=== PATIENT | male | born 1990 | race Asian ===

== ENCOUNTER 2017-04-24 10:40 | Emergency (ER) | payer OTHER ==
[2017-04-24 10:51] VITALS: BP 153/76; PULSE 99; TEMP 98.8; BMI 27.1
[2017-04-24] MEDS ORDERED: ONDANSETRON *ODT* 4 MG TABLET SL ONE (11:44)
[2017-04-24] MEDS ORDERED: IBUPROFEN 400 MG TABLET (FP) PO ONE ×2 (11:44→11:46)
--- NOTE | 2017-04-24 11:44 | PDOC ---
History of Present Illness - General Chief Complaint: Cold Symptoms Stated Complaint: FEVER, COLD Time Seen by Provider: 04/24/17 11:25 History Source: Patient Exam Limitations: No Limitations - History of Present Illness Initial Comments: 04/24/17 11:46 Patient is a 27-year-old male with past medical history of asthma, who presents to the emergency department complaining of 5 days of "feeling cold "and body aches. Patient admits to sore throat and dry cough. He states that everything hurts. Has been taking ibuprofen with some relief. Did not take any this morning. Admits to subjective fevers, nausea. Denies earache, shortness of breath, difficulty breathing, wheezing, vomiting, diarrhea Past History - Travel Traveled outside of the country in the last 30 days: No Close contact w/someone who was outside of country & ill: No - Past Medical History Allergies/Adverse Reactions: Allergies Allergy/AdvReac Type Severity Reaction Status Date / Time No Known Allergies Allergy Verified 04/24/17 10:45 Home Medications: Ambulatory Orders Amoxicillin - [Amoxicillin 500mg Capsule -] 500 mg PO BID #14 capsule 04/24/17 Ibuprofen 800 mg PO TID #30 tablet 04/24/17 Asthma: Yes COPD: No - Surgical History Appendectomy: Yes - Suicide/Smoking/Psychosocial Hx Smoking History: Never smoked Hx Alcohol Use: No Drug/Substance Use Hx: No Substance Use Type: None Review of Systems - Review of Systems Able to Perform ROS?: Yes Comments:: 04/24/17 11:48 CONSTITUTIONAL: Present: subjective fever, body aches Absent: chills, diaphoresis, generalized weakness, malaise, loss of appetite HEENT: Present: sore throat Absent: rhinorrhea, nasal congestion, throat swelling, difficulty swallowing, mouth swelling, ear pain, eye pain, visual changes CARDIOVASCULAR: Absent: chest pain, loss of consciousness, palpitations, irregular heart rate, peripheral edema RESPIRATORY: Present: dry non-productive cough Absent: shortness of breath, dyspnea with exertion, orthopnea, wheezing, stridor, hemoptysis GASTROINTESTINAL: Absent: abdominal pain, abdominal distension, nausea, vomiting, diarrhea, constipation, melena, hematochezia GENITOURINARY: Absent: dysuria, frequency, urgency, hesitancy, hematuria, flank pain, genital pain MUSCULOSKELETAL: Absent: myalgia, arthralgia, joint swelling SKIN: Absent: rash, itching, pallor HEMATOLOGIC/IMMUNOLOGIC: Absent: easy bleeding, easy bruising, lymphadenopathy, frequent infections ENDOCRINE: Absent: unexplained weight gain, unexplained weight loss, heat intolerance, cold intolerance NEUROLOGIC: Absent: headache, focal weakness or paresthesias, dizziness, unsteady gait, seizure, mental status changes, bladder or bowel incontinence PSYCHIATRIC: Absent: anxiety, depression, suicidal or homicidal ideation, hallucinations. Is the patient limited Polish proficient: No *Physical Exam - Vital Signs Last Vital Signs Temp Pulse Resp BP Pulse Ox 98.8 F 99 H 20 153/76 95 04/24/17 10:42 04/24/17 10:42 04/24/17 10:42 04/24/17 10:42 04/24/17 10:42 - Physical Exam Comments: 04/24/17 11:50 GENERAL: Well developed, well nourished. Awake and alert. No acute distress. HEENT: Normocephalic, atraumatic. PERRLA, EOMI. Conjunctivitis b/l. Sclera are non- icteric. Moist mucous membranes. Oropharynx with erythema. Tonsils 1+ in size with no uvular deviation NECK: Supple. Full ROM. No JVD. Carotid pulses 2+ and symmetric, without bruits. No thyromegaly. No lymphadenopathy. CARDIOVASCULAR: Regular rate and rhythm. No murmurs, rubs, or gallops. Distal pulses are 2+ and symmetric. PULMONARY: No evidence of respiratory distress. Lungs clear to auscultation bilaterally. No wheezing, rales or rhonchi. ABDOMINAL: Soft. Non-tender. Non-distended. No rebound or guarding. No organomegaly. Normoactive bowel sounds. MUSCULOSKELETAL Normal range of motion at all joints. No bony deformities or tenderness. No CVA tenderness. EXTREMITIES: No cyanosis. No clubbing. No edema. No calf tenderness. SKIN: Warm and dry. Normal capillary refill. No rashes. No jaundice. NEUROLOGICAL: Alert, awake, appropriate. Cranial nerves 2-12 intact. No deficits to light touch and temperature in face, upper extremities and lower extremities. No motor deficits in the in face, upper extremities and lower extremities. Normoreflexic in the upper and lower extremities. Normal speech. Toes are down- going bilaterally. Gait is normal without ataxia. PSYCHIATRIC: Cooperative. Good eye contact. Appropriate mood and affect. Medical Decision Making - Medical Decision Making 04/24/17 11:51 Patient is a 27-year-old male with past medical history of asthma, who presents emergency Department with 5 days of generalized body aches, subjective fevers and sore throat. Symptoms concerning for flu. We'll also rule out strep throat at this time. We'll treat patient's body aches and nausea. 1.flu swab, rapid strep 2.Zofran, ibuprofen 3.reevaluate 04/24/17 12:10 Strep positive 04/24/17 12:26 Flu swab negative. Will d/c home with amoxicillin and supportive care. Pt. to f/ u with PCP in one week. All questions were answered and pt feels comfortable with d/c planning. *DC/Admit/Observation/Transfer Diagnosis at time of Disposition: Strep pharyngitis - Discharge Dispostion Disposition: HOME Condition at time of disposition: Good Admit: No - Prescriptions Prescriptions: Amoxicillin - [Amoxicillin 500mg Capsule -] 500 mg PO BID #14 capsule Ibuprofen 800 mg PO TID #30 tablet - Referrals Referrals: Wild Knox MD [Primary Care Provider] - - Patient Instructions Printed Discharge Instructions: DI for Strep Throat Additional Instructions: You have strep throat. This is caused by a bacteria. Please take amoxicillin 500 mg twice a day for one week. Please finish the medication even if you feel better. Please take ibuprofen 800 mg every 8 hours as needed for pain or body aches. Do not exceed taking more than 3000 mg a day. Throat lozenges and warm water gargles may help your sore throat. Please drink plenty of fluids Throat away her toothbrush after he was finished treatment. Return to the emergency department if you have worsening pain, difficulty swallowing, difficulty chewing, difficulty breathing, or any changes in her symptoms. - Post Discharge Activity Forms/Work/School Notes: Back to Work
[2017-04-24] MEDS ORDERED: ONDANSETRON *ODT* 4 MG TABLET ONE (11:46)
== END 2017-04-24 12:33 | disposition home or self-care (01) ==
LOC: JER 10:40 → JERFT 10:40
DX: J02.0 Streptococcal pharyngitis (principal); B95.5 Unspecified streptococcus as the cause of diseases classified elsewhere
CPT/HCPCS: 87070; 87430; 87804; 99281-25

== ENCOUNTER 2019-02-12 21:52 | Emergency (ER) | payer OTHER ==
[2019-02-12 22:11] VITALS: BP 178/74; PULSE 88; TEMP 98.9; BMI 25.9
[2019-02-12] MEDS ORDERED: IBUPROFEN 400 MG TABLET (FP) PO ONE ×2 (22:26→22:31)
--- NOTE | 2019-02-12 22:51 | PDOC ---
History of Present Illness - General Chief Complaint: Pain Stated Complaint: R LEG PAIN Time Seen by Provider: 02/12/19 22:23 History Source: Patient - History of Present Illness Initial Comments: 02/12/19 22:51 28-year-old male complaining of right foot pain since 8 PM unsure of twisting ankle and foot. Pain worse with movement and palpation. Patient is noted to have slight swelling to right foot. Past History - Past Medical History Allergies/Adverse Reactions: Allergies Allergy/AdvReac Type Severity Reaction Status Date / Time No Known Allergies Allergy Verified 02/12/19 22:06 Home Medications: Ambulatory Orders Amoxicillin - [Amoxicillin 500mg Capsule -] 500 mg PO BID #14 capsule 04/24/17 Ibuprofen 800 mg PO TID #30 tablet 04/24/17 Ibuprofen 600 mg PO QID PRN #20 tablet 02/12/19 Asthma: Yes COPD: No - Surgical History Appendectomy: Yes - Psycho Social/Smoking Cessation Hx Smoking History: Never smoked Have you smoked in the past 12 months: No Information on smoking cessation initiated: No Hx Alcohol Use: No Drug/Substance Use Hx: No Substance Use Type: None Review of Systems - Review of Systems Able to Perform ROS?: Yes Is the patient limited Cuban proficient: No Musculoskeletal: Yes: Other (right foot pain) *Physical Exam - Vital Signs Last Vital Signs Temp Pulse Resp BP Pulse Ox 98.9 F 88 18 178/74 H 100 02/12/19 22:03 02/12/19 22:03 02/12/19 22:03 02/12/19 22:03 02/12/19 22:03 - Physical Exam General Appearance: Yes: Appropriately Dressed Extremity: positive: Other (right foot 4th and 5th metatarsal area pain, slight swelling) Integumentary: positive: Normal Color, Warm Neurologic: positive: Fully Oriented, Normal Mood/Affect ED Progress Note - Progress Note Progress Note: 02/12/19 22:56 A: right foot sprain P: xray hard sole shoe Ortho/ podiatry follow up Discharge - Discharge Information Problems reviewed: Yes Clinical Impression/Diagnosis: Sprain of right foot Qualifiers: Encounter type: initial encounter Qualified Code(s): S93.601A - Unspecified sprain of right foot, initial encounter Condition: Stable Disposition: HOME - Follow up/Referral Referrals: Wild Knox MD [Primary Care Provider] - Carlyle Perdomo DPM [Staff Physician] - Call tomorrow Claude Quick MD [Staff Physician] - Call tomorrow - Patient Discharge Instructions Patient Printed Discharge Instructions: DI for Foot Pain Additional Instructions: Apply ice to the area for the first 24 hours. wear a hard sole shoe. elevate your foot. Take ibuprofen every 6 hours as needed for pain. Follow-up with an orthopedic doctor if symptoms persist. A referral was given to you today. Return to the emergency room for any worsening symptoms. - Post Discharge Activity Work/Back to School Note: Back to Work
== END 2019-02-12 23:16 | disposition home or self-care (01) ==
LOC: JERFT 21:52 → JER 21:52
DX: S93.601A Unspecified sprain of right foot, initial encounter (principal); X58.XXXA Exposure to other specified factors, initial encounter; Y93.89 Activity, other specified; Y92.89 Other specified places as the place of occurrence of the external cause; Y99.8 Other external cause status
CPT/HCPCS: 73610-TC-RT-FY; 73630-TC-RT-FY; 99282-25

== ENCOUNTER 2022-04-03 11:34 | Emergency (ER) | payer OTHER ==
[2022-04-03 11:45] VITALS: BP 132/90; PULSE 100; RESP 18; TEMP 98.6; BMI 27.1
== END 2022-04-03 13:58 | disposition home or self-care (01) ==
LOC: JERFT 11:34 → JER 11:34 → JERFT 13:58
DX: J20.9 Acute bronchitis, unspecified (principal)
CPT/HCPCS: 0241U-QW; 71046-TC-FY; 99284-25

== ENCOUNTER 2022-04-17 00:35 | Emergency (ER) | payer OTHER ==
[2022-04-17 01:02] VITALS: BP 123/78; PULSE 102; RESP 20; TEMP 99; BMI 254.2
[2022-04-17] MEDS ORDERED: DEXAMETHASONE SOD PHOSPHATE 10 MG/1 ML VIAL IVPUSH ONE (01:20)
[2022-04-17] MEDS ORDERED: ALBUTEROL SO4 2.5/IPRATROPIUM 0.5 INH SOL 3 ML VIAL.NEB. NEB SCH (01:30)
[2022-04-17] MEDS ORDERED: DEXAMETHASONE SOD PHOSPHATE 10 MG/1 ML VIAL ONE (01:56)
[2022-04-17] MEDS ORDERED: ALBUTEROL SO4 2.5/IPRATROPIUM 0.5 INH SOL 3 ML VIAL.NEB. NEB ONE (01:57)
[2022-04-17 02:12] LABS: VENOUS BASE EXCESS 3.3 mmol/L (-2-2); VENOUS O2 SATURATION 78.4 % (70-80); VENOUS PCO2 48.2 mmHg (38-52); VENOUS PH 7.398 (7.310-7.410)
[2022-04-17 02:13] LABS: BASO % 0.6 % (0-2.0); EOS % 1.4 % (0-4.5); HEMATOCRIT 43.2 % (35.4-49); HEMOGLOBIN 14.7 GM/dL (11.7-16.9); LYMPH % 13.4 % (8-40); MEAN CELL VOLUME 88.2 fl (80-96); MEAN PLT VOLUME 7.9 fl (7.5-11.1); MONO % 8.1 % (3.8-10.2); NEUT % 76.5 % (42.8-82.8); PLATELET COUNT 249 10^3/uL (134-434); RDW 12.7 % (11.9-15.9)
[2022-04-17 02:46] LABS: ALBUMIN 3.9 g/dl (3.4-5.0); BLOOD UREA NITROGEN 12.9 mg/dL (7-18); CALCIUM 9.4 mg/dL (8.5-10.1)
[2022-04-17 02:49] LABS: CREATININE 0.7 mg/dL (0.55-1.3)
[2022-04-17 02:51] LABS: BILIRUBIN,TOTAL 0.6 mg/dL (0.2-1); TOT PROT 8.2 g/dl (6.4-8.2)
[2022-04-17] MEDS ORDERED: DEXAMETHASONE 4 MG TABLET (FP) PO ONE ×2 (03:39→03:51)
[2022-04-17] MEDS ORDERED: DEXAMETHASONE 4 MG TABLET (FP) ONE (03:51)
== END 2022-04-17 04:06 | disposition home or self-care (01) ==
LOC: JER 00:35
PROC: 3E033GC Introduction of Other Therapeutic Substance into Peripheral Vein, Percutaneous Approach (ICD-10-PCS; principal; 2022-04-17)
PROC: 3E0F7GC Introduction of Other Therapeutic Substance into Respiratory Tract, Via Natural or Artificial Opening (ICD-10-PCS; 2022-04-17)
DX: J45.909 Unspecified asthma, uncomplicated (principal)
CPT/HCPCS: 0241U-QW; 36415; 71045-TC-FY; 80053; 82803; 85025; 93005; 93010; 99285-25; J1100

== ENCOUNTER 2023-05-08 14:22 | Observation (INO) | payer OTHER ==
[2023-05-08 14:28] VITALS: BMI 29.1
[2023-05-08] MEDS ORDERED: SODIUM CHLORIDE 0.9% 500 ML INFUS.BAG IV ONE (14:51)
[2023-05-08] MEDS ORDERED: KETOROLAC TROMETHAMINE 15 MG/ML VIAL IVPUSH ONE (14:51)
[2023-05-08] MEDS ORDERED: ACETAMINOPHEN 500 MG TABLET (FP) PO ONE (14:51)
[2023-05-08] MEDS ORDERED: ALBUTEROL SO4 2.5/IPRATROPIUM 0.5 INH SOL 3 ML VIAL.NEB. NEB ONE ×3 (14:53→16:02)
[2023-05-08] MEDS ORDERED: ACETAMINOPHEN INJECTION 100 ML IVPB ONE (14:58)
[2023-05-08] MEDS ORDERED: KETOROLAC TROMETHAMINE 15 MG/ML VIAL ONE (14:59)
[2023-05-08] MEDS ORDERED: ACETAMINOPHEN 500 MG TABLET (FP) ONE (15:39)
[2023-05-08 16:11] LABS: BASO % 0.3 % (0-2.0); EOS % 0.4 % (0-4.5); HEMATOCRIT 48.2 % (35.4-49); HEMOGLOBIN 16.9 GM/dL (11.7-16.9); LYMPH % 18.9 % (8-40); MCHC 34.9 g/dl (32.0-35.9); MEAN CELL VOLUME 88.8 fl (80-96); MEAN PLT VOLUME 7.9 fl (7.5-11.1); MONO % 13.8 % (3.8-10.2); NEUT % 66.6 % (42.8-82.8); PLATELET COUNT 220 10^3/uL (134-434); RBC 5.43 M/mm3 (4.00-5.60); RDW 12.7 % (11.9-15.9); WHITE BLOOD COUNT 8.7 K/mm3 (4.0-10.0)
[2023-05-08] MEDS ORDERED: methylPREDNISolone NA SUCC 125 MG/2 ML VIAL IVPB ONE (16:17)
[2023-05-08 16:22] LABS: POTASSIUM 4.1 mmol/L (3.5-5.1)
[2023-05-08 16:24] LABS: ALBUMIN 4.4 g/dl (3.4-5.0); BLOOD UREA NITROGEN 12.3 mg/dL (7-18); CALCIUM 9.4 mg/dL (8.5-10.1)
[2023-05-08 16:27] LABS: CREATININE 0.9 mg/dL (0.55-1.3)
[2023-05-08 16:29] LABS: BILIRUBIN,TOTAL 0.7 mg/dL (0.2-1)
[2023-05-08] MEDS ORDERED: methylPREDNISolone NA SUCC 125 MG/2 ML VIAL ONE (17:30)
[2023-05-08] MEDS ORDERED: guaiFENesin 200 MG/10 ML 10 ML UNIT-DOSE CUPS PO PRN (20:03)
[2023-05-08] MEDS ORDERED: ALBUTEROL SO4 HFA INHALER IH PRN (20:05)
[2023-05-08] MEDS ORDERED: ACETAMINOPHEN 325 MG TABLET (FP) PO PRN (22:00)
[2023-05-08] MEDS ORDERED: OSELTAMIVIR PHOSPHATE 75 MG CAPSULE ONE (22:13)
[2023-05-08] MEDS: OSELTAMIVIR PHOSPHATE 75 MG CAPSULE PO SCH (22:20)
[2023-05-09] MEDS: methylPREDNISolone NA SUCC 40 MG/1 ML VIAL IVPUSH SCH ×2 (03:18→09:58)
[2023-05-09] MEDS ORDERED: methylPREDNISolone NA SUCC 40 MG/1 ML VIAL ONE ×2 (03:19→09:53)
[2023-05-09 06:29] LABS: BASO % 0.1 % (0-2.0); HEMATOCRIT 43.1 % (35.4-49); HEMOGLOBIN 14.9 GM/dL (11.7-16.9); LYMPH % 14.9 % (8-40); MCH 30.7 pg (25.7-33.7); MCHC 34.6 g/dl (32.0-35.9); MEAN CELL VOLUME 88.7 fl (80-96); MEAN PLT VOLUME 7.8 fl (7.5-11.1); MONO % 3.1 % (3.8-10.2); NEUT % 81.9 % (42.8-82.8); PLATELET COUNT 234 10^3/uL (134-434); RBC 4.86 M/mm3 (4.00-5.60); RDW 12.3 % (11.9-15.9); WHITE BLOOD COUNT 5.2 K/mm3 (4.0-10.0)
[2023-05-09 06:31] LABS: POTASSIUM 4.1 mmol/L (3.5-5.1)
[2023-05-09 06:33] LABS: BLOOD UREA NITROGEN 13.6 mg/dL (7-18)
[2023-05-09 06:37] LABS: CREATININE 0.9 mg/dL (0.55-1.3)
[2023-05-09 08:28] VITALS: RESP 20
[2023-05-09] MEDS ORDERED: OSELTAMIVIR PHOSPHATE 75 MG CAPSULE ONE (10:55)
[2023-05-09] MEDS: OSELTAMIVIR PHOSPHATE 75 MG CAPSULE PO SCH (10:56)
[2023-05-09 11:14] VITALS: BP 143/71; PULSE 75; TEMP 97.9
== END 2023-05-09 11:13 | disposition home or self-care (01) ==
LOC: JER 14:22 → JERBED 23:59
PROVIDERS: ADMIT Internal Medicine; ATTEND Family Medicine
PROC: 3E0F7GC Introduction of Other Therapeutic Substance into Respiratory Tract, Via Natural or Artificial Opening (ICD-10-PCS; principal; 2023-05-08)
PROC: 3E0333Z Introduction of Anti-inflammatory into Peripheral Vein, Percutaneous Approach (ICD-10-PCS; 2023-05-08)
PROC: 3E033GC Introduction of Other Therapeutic Substance into Peripheral Vein, Percutaneous Approach (ICD-10-PCS; 2023-05-08)
PROC: 3E0337Z Introduction of Electrolytic and Water Balance Substance into Peripheral Vein, Percutaneous Approach (ICD-10-PCS; 2023-05-08)
DX: J09.X2 Influenza due to identified novel influenza A virus with other respiratory manifestations (principal); J96.01 Acute respiratory failure with hypoxia; J45.901 Unspecified asthma with (acute) exacerbation
CPT/HCPCS: 0241U-QW; 36415; 71046-TC-FY; 80048; 80053; 84484; 85025; 93005; 93010; 94640; 96374; 96375; 96376; 99285-25; G0378

== ENCOUNTER 2024-06-05 10:06 | Emergency (ER) | payer OTHER ==
[2024-06-05 10:17] VITALS: BP 141/72; PULSE 88; RESP 18; TEMP 99; BMI 29.9
[2024-06-05] MEDS ORDERED: ACETAMINOPHEN 500 MG TABLET (FP) ONE (10:51)
[2024-06-05] MEDS ORDERED: IBUPROFEN 600 MG TABLET (FP) PO ONE (10:51)
[2024-06-05] MEDS: IBUPROFEN 600 MG TABLET (FP) PO ONE (10:56)
[2024-06-05] MEDS: ACETAMINOPHEN 500 MG TABLET (FP) PO ONE (10:56)
== END 2024-06-05 12:37 | disposition home or self-care (01) ==
LOC: JERFT 10:06
DX: R50.9 Fever, unspecified (principal); B34.9 Viral infection, unspecified; R05.9 Cough, unspecified; R09.81 Nasal congestion; M79.10 Myalgia, unspecified site; R07.89 Other chest pain; R53.83 Other fatigue; Z20.822 Contact with and (suspected) exposure to COVID-19
CPT/HCPCS: 0241U-QW; 71046-TC-FY; 87651; 99284-25